=== PATIENT | male | born 1960 | race Hispanic/Latino ===

== ENCOUNTER 2022-03-16 10:58 | Emergency (ER) | payer SELFPAY ==
--- NOTE | 2022-03-16 17:34 | Emergency Department Report ---
ED General Adult HPI - General Chief complaint: Skin/Abscess/Foreign Body Stated complaint: THINKS HE HAS A WORM IN BACK Time Seen by Provider: 03/16/22 17:01 Source: patient Mode of arrival: Ambulatory Limitations: No Limitations - History of Present Illness Initial comments: 61-year-old male with no significant past medical history reports to the ER with complaints of abscess to his right side middle back. Patient reports that he was in his garden about 6 weeks ago something fell down into his shirt unaware what it was and then the next day started to notice swelling to his back. Patient reports drainage from the abscess area as well as reports that his expressed white pus from abscess a few days ago. Patient denies fever, chills, weakness, dizziness. Patient has not taken anything for symptoms at this time. Patient reports no other acute symptoms. - Related Data Previous Rx's Medication Instructions Recorded Last Taken Type cephALEXin [Keflex] 500 mg PO Q12HR 7 Days #14 cap 03/16/22 Unknown Rx Allergies Allergy/AdvReac Type Severity Reaction Status Date / Time No Known Allergies Allergy Unverified 03/16/22 11:54 ED Review of Systems ROS: Stated complaint: THINKS HE HAS A WORM IN BACK Other details as noted in HPI Comment: All other systems reviewed and negative Skin: rash, other (Cellulitis of the right side of back.) ED Past Medical Hx - Past Medical History Previous Medical History?: No - Medications Home Medications: Home Medications Medication Instructions Recorded Confirmed Last Taken Type cephALEXin [Keflex] 500 mg PO Q12HR 7 Days #14 cap 03/16/22 Unknown Rx ED Physical Exam - General Limitations: No Limitations General appearance: alert, in no apparent distress - Head Head exam: Present: atraumatic, normocephalic - Eye Eye exam: Present: normal appearance - ENT ENT exam: Present: mucous membranes moist - Neck Neck exam: Present: normal inspection - Respiratory Respiratory exam: Present: normal lung sounds bilaterally. Absent: respiratory distress - Cardiovascular Cardiovascular Exam: Present: regular rate, normal rhythm. Absent: systolic murmur, diastolic murmur, rubs, gallop - GI/Abdominal GI/Abdominal exam: Present: soft, normal bowel sounds - Rectal Rectal exam: Present: deferred - Extremities Exam Extremities exam: Present: normal inspection - Back Exam Back exam: Present: normal inspection - Neurological Exam Neurological exam: Present: alert, oriented X3 - Psychiatric Psychiatric exam: Present: normal affect, normal mood - Skin Skin exam: Present: warm, dry, intact, normal color, rash (Cellulitis to the right side of upper back. Warmth with redness noted and slight swelling. There are 2 abscess openings but no drainage with expression.) ED Course Vital Signs 03/16/22 18:50 Temperature 97.6 F Pulse Rate 77 Respiratory 20 Rate Blood Pressure 159/94 [Left] O2 Sat by Pulse 98 Oximetry ED Medical Decision Making - Medical Decision Making 61-year-old male with no significant past medical history reports abscess to the right side of his upper back. No acute symptoms noted to suggest any types of sepsis. On physical exam there is a reddened area with a diameter of about 5 cm. Redness warmth and tenderness noted. No indication for I&D. There is opening from prior expression made by his and himself. With small amounts of clear drainage coming from openings. Patient stable for discharge. Patient informed that he will be started on antibiotics for cellulitis infection. Patient agrees with plan of care and verbalized understanding. Patient will follow his primary care provider as needed. Patient informed if symptoms are to get worse to please report back to the ER. Vital Signs 03/16/22 18:50 Temperature 97.6 F Pulse Rate 77 Respiratory 20 Rate Blood Pressure 159/94 [Left] O2 Sat by Pulse 98 Oximetry Critical care attestation.: If time is entered above; I have spent that time in minutes in the direct care of this critically ill patient, excluding procedure time. ED Disposition Clinical Impression: Cellulitis of upper back excluding scapular region Disposition: HOME / SELF CARE / HOMELESS Is pt being admited?: No Condition: Stable Instructions: Cellulitis, Adult Prescriptions: cephALEXin [Keflex] 500 mg PO Q12HR 7 Days #14 cap Referrals: PRIMARY CARE, [Primary Care Provider] - 3-5 Days Time of Disposition: 17:40
[2022-03-16] MEDS ORDERED: cephALEXin 500 MG CAP PO ONE (17:45)
[2022-03-16 18:57] VITALS: BP 159/94
== END 2022-03-16 18:57 | disposition home or self-care (01) ==
LOC: ED 10:58
DX: L03.312 Cellulitis of back [any part except buttock and flank] (principal); Z79.899 Other long term (current) drug therapy
CPT/HCPCS: 99282